=== PATIENT | female | born 1960 | race Caucasian/White ===

== ENCOUNTER 2024-01-27 10:24 | Day surgery (SDC) | payer OTHER ==
[2024-01-25 14:34] VITALS: BMI 20.5
[~2024-01-27 10:24] MED LIST: DEXAMETHASONE SOD PHOSPHATE 4 MG/ML 1 ML VIAL IV ONE; HYDROmorphone 0.5 MG/0.5 ML SYRINGE IVP PRN; LACTATED RINGERS 1,000 ML IV SCH; LIDOCAINE 1% (10MG/ML) FOR IV START INTRADERMA PRN; MIDAZOLAM 2 MG/2 ML VIAL IV PRN; ONDANSETRON 4 MG/2 ML VIAL IVP ONE
--- NOTE | 2024-01-27 11:21 | CT ---
EXAMINATION TYPE: CT chest wo con DATE OF EXAM: 01/27/2024 COMPARISON: None HISTORY: ion robot bronchoscopy CT DLP: 198.60 mGycm, Automated exposure control for dose reduction was used. CONTRAST: Performed injected with mL of . TECHNIQUE: Axial images were obtained at 5 mm thick sections. Reconstructed images are reviewed on [employer] computer in the coronal plane. FINDINGS: Portion of the thyroid visualized is normal. Emphysematous changes are present in the lung apices. 1.1 cm nodularity versus scarring is at the medial right apex. Series 4 image 41. There is a peripheral 0.3 cm calcification right posterior lateral upper lung field. Series 4 image 1 02. Some nonspecific increased lung markings are within the anterior left midlung. Example Series 4 image 158. Mild pneumonitis change may be within the lingula. Series 4 image 174 mild pneumonitis changes made i n the anterior medial right middle lobe. There is streak opacity posterior right lung base, example image series 4 image 293. Consider atelec tasis. Follow-up recommended. No enlarged mediastinal or hilar adenopathy is evident. The ascending aorta diameter at the level o f the main pulmonary artery is 3.1 cm. The main pulmonary artery diameter at the bifurcation is 2.1 cm. There is very minimal pericardial effusion. This may be physiologic in Limited CT sections are obtained through the upper abdomen. Abdomen is essentially unremarkable. IMPRESSION: 1. Focal area of suspected scarring right apex. Underlying mass is not excluded. Follow-up is recomme nded. 2. Atelectasis versus mass posterior right lung base. 3. Scattered bilateral anterior areas of pneumonitis. 4. CT performed for bronchoscopy guidance.
[2024-01-27] MEDS: LACTATED RINGERS 1,000 ML IV SCH (11:46)
[2024-01-27] MEDS ORDERED: SUCCINYLCHOLINE CHLORIDE 200 MG/10 ML VIAL IV ONE (12:27)
[2024-01-27] MEDS ORDERED: NEOSTIGMINE 1 MG/ML 10 ML VIAL ONE (12:27)
[2024-01-27] MEDS ORDERED: LIDOCAINE 1% INJ 10MG/ML (20 ML MDV) ONE (12:27)
[2024-01-27] MEDS ORDERED: PROPOFOL 10 MG/ML 20 ML VIAL IV ONE (12:27)
[2024-01-27] MEDS ORDERED: ROCURONIUM 10 MG/ML (5 ML VIAL) IV ONE (12:27)
[2024-01-27] MEDS ORDERED: GLYCOPYRROLATE 0.2 MG/ML 2 ML VIAL ONE (12:27)
--- NOTE | 2024-01-27 13:30 | P.PCN ---
Date of Procedure: 01/27/24 Operative Findings: Preoperative Diagnosis: Right upper lobe nodule, 5 mm Postoperative Diagnosis: Right upper lobe nodule, 5 mm Procedure(s) Performed: Flexible bronchoscopy and bronchoalveolar lavage of the lingula Robotic-assisted bronchoscopy and addition to radial ultrasound evaluation of the right upper lobe pulmonary nodule Robotic-assisted tansbronchial needle aspirate, transbronchial biopsies, right upper lobe pulmonary nodule Endobronchial ultrasound Anesthesia: CEEA Surgeon: Finesse Castro Estimated Blood Loss (ml): 0 Pathology: other Condition: stable Disposition: same day Operative Findings: A physical exam was performed. Informed consent was obtained from the patient after explaining all the risks (pneumothorax, life threatening bleeding, infection and adverse effects due to medications), benefits and alternatives to the procedure which the patient appeared to understand and so stated. The patient was connected to the monitoring devices. General anesthesia was induced and the patient was intubated by anesthesia. A final timeout was performed and the procedure confirmed by the attending staff bronchoscopist. The bronchoscope was inserted and the airway examined. The airway examination was within normal limits. There was some limited secretions that were suctioned out without any major difficulties. The secretions were more abundant in the lingula segment of the left upper lobe. Based on that, a bronchial lavage of the lingula was done. A total of 60 cc of fluid was infused and 20 cc of aspirate was obtained The flexible bronchoscope was removed a and sent at nd the robotic bronchoscope was inserted. Registration was completed. I next guided the robotic bronchoscope using the navigation system into the right upper lobe apical segment segment. Once in proper position, the bronchoscope was frozen. The radial EBUS probe was placed through the bronchoscope and confirmed abnormal u/s images vs normal lung. A needle was placed through the working channel and under fluoroscopic guidance, we sampled the area thought to have the mass twice. We then used a cloud biopsy pattern with ultrasound confirmation for 6 additional passes with the needle. I utilize a 23-gauge needle. Rapid on-site pathologic evaluation was done in the samples were adequate. U/S evaluation was then used to reconfirm location. Forceps were next introduced through working channel and extended the appropriate distance and 2 transbronchial biopsies were performed using fluoroscopic guidance. The u/s probe was then reinserted to confirm location. When confirmed this process was repeated for a total of 6 transbronchial biopsies. Fluoroscopic check for pneumothorax was negative upon completion of the procedure. There was 0 ml blood loss with the procedure. FINDINGS: 1.The airways appeared normal 2 Successful navigation, ultrasonographic identification, and biopsies of right upper lobe pulmonary nodule 3.The radial ultrasound view was initially eccentric and later on concentric RECOMMENDATIONS: Await pathology and cytology results The referring physician will be alerted to the results when available. The patient was advised to follow up with the referring physician with the b iopsy results Patient will be called with results.
[2024-01-27 13:51] VITALS: TEMP 97
[2024-01-27 14:25] VITALS: BP 136/79; PULSE 80; RESP 18
--- NOTE | 2024-01-27 14:43 | XR ---
EXAMINATION TYPE: XR chest 1V DATE OF EXAM: 01/27/2024 COMPARISON: Correlation CT same day HISTORY: 63-year-old female post biopsy TECHNIQUE: Single frontal view of the chest is obtained. FINDINGS: Heart normal size. Aorta and pulmonary vasculature are within normal limits. Hyperinflatio n with mild interstitial density. Biapical pleural parenchymal scarring, right greater than left. The biopsied nodule medial right apex not well delineated by radiograph. Some patchy lingular opacity as seen on patient's CT. Old healed right-sided rib fracture deformities. No pleural effusion. No appre ciable pneumothorax. IMPRESSION: 1. COPD. He biopsied nodule at the medial right apex is not well delineated by radiograph. No appreci able pneumothorax. 2. Inferior lingular infiltrate as seen on CT. Correlate with symptoms.
--- NOTE | 2024-01-27 21:43 | FL ---
EXAMINATION TYPE: FL bronchoscopy DATE OF EXAM: 01/27/2024 CLINICAL HISTORY: 63-year-old female bronchoscopy with Ion robot and biopsy. TECHNIQUE: Fluoroscopy. COMPARISON: None. FINDINGS: Fluoroscopic guidance was provided during procedure performed by Dr. Castro. A total of 1 minute 31 seconds of fluoroscopic time was utilized during the procedure and 1 spot images was acq uired. Total dose area product (DAP) in Gy*cm? (or similar: 2.22. Robotic medial right upper lobe endobronchial biopsy. IMPRESSION: As Above.
== END 2024-01-27 14:58 | disposition home or self-care (01) ==
LOC: ORWHC2ENDO 10:24
PROVIDERS: ATTEND Internal Medicine Critical Care Medicine
DX: R91.1 Solitary pulmonary nodule (principal); J44.9 Chronic obstructive pulmonary disease, unspecified; E78.5 Hyperlipidemia, unspecified; E03.9 Hypothyroidism, unspecified; M06.9 Rheumatoid arthritis, unspecified; M19.90 Unspecified osteoarthritis, unspecified site; Z79.1 Long term (current) use of non-steroidal anti-inflammatories (NSAID); Z79.890 Hormone replacement therapy; Z79.899 Other long term (current) drug therapy; Z98.890 Other specified postprocedural states
CPT/HCPCS: 31654; 31627; 88305; 87070; 87205; 87116; 87102; 87206; 71045; 71250; 31628; 31629; 31624; J0330; J2710; J2001; J2704; S2900; 87496; 87498; 87502; 87529; 87634; 87635; 87798

== ENCOUNTER → 2024-08-11 | Outpatient (CLI) | payer OTHER ==
--- NOTE | 2024-08-11 11:43 | CT ---
EXAMINATION TYPE: CT chest wo con CT DLP: 385 mGycm, Automated exposure control for dose reduction was used. DATE OF EXAM: 08/11/2024 11:10 AM COMPARISON: 01/27/2024. CLINICAL INDICATION: Female, 64 years old with history of R91.8 OTHER NONSPECIFIC ABNORMAL FINDING OF LUNG F; PHH, lung nodule TECHNIQUE: Multiple axial images were obtained through the chest. Sagittal and coronal reformats were created for review. Contrast used: mL of (None if empty) Oral contrast used: (None if empty) FINDINGS: LUNGS/ PLEURA: Stable appearance of right lung apex scarring near centrilobular and paraseptal emphys erwin. Paraseptal and centrilobular emphysema changes some atelectasis in the lingula. Streaky atelecta sis in the right lung base. Right upper lung 2 mm nodule series 4. Left upper lung 3 mm nodule series 3 image 10. Left upper lung pulmonary nodule series 3 image 25. Groundglass pulmonary nodules noted in the lingula. Best appreciated on sagittal imaging series 7 image 78. AIRWAY: Patent and unremarkable. HEART: Size within normal limits. MEDIASTINUM: No gross evidence of adenopathy. VASCULATURE: No aortic aneurysm. MUSCULOSKELETAL: No acute osseous abnormalities SOFT TISSUES/LYMPH NODES: Unremarkable. LOWER NECK: No significant findings. UPPER ABDOMEN: No significant findings. IMPRESSION: 1. Stable right upper lung scarring near some paraseptal and centrilobular emphysema changes. 2. Ground glass opacities in the lingula. Findings somewhat similar to 01/27/2024. Correlate for atyp ical infection. 3. Mild paraseptal and centrilobular emphysema. 4. No clinically significant pulmonary nodules.
== END | disposition home or self-care (01) ==
LOC: RADCTMAIN 10:51
PROVIDERS: ATTEND Internal Medicine Critical Care Medicine
DX: R91.8 Other nonspecific abnormal finding of lung field
CPT/HCPCS: 71250

== ENCOUNTER → 2025-02-16 | Outpatient (CLI) | payer OTHER ==
--- NOTE | 2025-02-16 13:04 | CT ---
EXAMINATION TYPE: CT chest w con DATE OF EXAM: 02/16/2025 COMPARISON: 02/16/2025 CLINICAL INDICATION: Female, 64 years old with history of R91.8 OTHER NONSPECIFIC ABNORMAL FINDING OF LUNG F; PHH, prior abnormal lung findings TECHNIQUE: CT scan of the chest is performed with IV Contrast, patient injected with 100ml mL of Isovue 300. NH P Images are created on CT scanner and reviewed. 3D reconstructed images are created on an [employer] workstation and reviewed. CT DLP: 134.[address] CTDI: mGy Automated exposure control for dose reduction was used. FINDINGS: LUNGS: Stable right upper lung scarring near some paraseptal and centrilobular emphysema changes. Sta ble 4 mm nodule left upper lobe. Stable granuloma right upper lobe laterally image 24. Stable parench ymal scarring in the region of the lingula and right lower lobe. MEDIASTINUM: There are no greater than 1 cm hilar or mediastinal lymph nodes. No pericardial effusi on is seen. OTHER: No additional significant abnormality is seen. IMPRESSION: Stable right upper lung scarring near some paraseptal and centrilobular emphysema change s. Stable areas of nodularity. Annual follow-up recommended. Follow-up recommendations for incidental pulmonary nodules are per [employer] [place] [employer] or [place]. [facility], , 02/16/2025 1:01 PM
== END | disposition home or self-care (01) ==
LOC: RADCTMAIN 12:12
PROVIDERS: ATTEND Internal Medicine Critical Care Medicine
DX: J43.2 Centrilobular emphysema (principal); R91.8 Other nonspecific abnormal finding of lung field
CPT/HCPCS: 71260; Q9967